=== PATIENT | male | born 1980 | race Caucasian/White ===

== ENCOUNTER 2018-12-06 11:21 | Emergency (ER) | payer BC, OTHER ==
[2018-12-06 11:31] VITALS: BP 161/108
[2018-12-06] MEDS ORDERED: IBUP800T19 PO (11:38)
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
== END 2018-12-06 11:40 | disposition home or self-care (01) ==
LOC: ER 11:21
DX: S00.432A Contusion of left ear, initial encounter (principal); V47.5XXA Car driver injured in collision with fixed or stationary object in traffic accident, initial encounter; Y93.I9 Activity, other involving external motion; Y92.89 Other specified places as the place of occurrence of the external cause; Y99.8 Other external cause status
CPT/HCPCS: 99282